=== PATIENT | male | born 1985 | race Caucasian/White ===

== ENCOUNTER 2022-02-10 20:57 | Emergency (ER) | payer OTHER ==
[~2022-02-10] VITALS: Ht 177.8 cm; Wt 79.4 kg
[2022-02-11 01:44] LABS: BASOPHILS % 0.2 % (0.0-2.0); EOSINOPHILS % 1.6 % (0.0-5.0); HEMOGLOBIN. 15.2 g/dL (14.0-18.0); LYMPHOCYTES % 29.9 % (20.0-50.0); MEAN CORPUSCULAR HEMOGLOBIN 31.7 pg (28.0-32.0); MEAN CORPUSCULAR VOLUME 93.6 fL (80.0-94.0); MEAN PLATELET VOLUME 7.8 fl (7.4-10.4); MONOCYTES % 8.6 % (2.0-8.0); NEUTROPHILS % 59.7 % (40.0-76.0); PLATELET 249 x1000/uL (130-400); RED CELL DISTRIBUTION WIDTH 13.4 % (11.6-14.6)
[2022-02-11 01:53] LABS: CHLORIDE 106 mEq/L (98-107)
[2022-02-11] MEDS ORDERED: IBUP-2028 MT (05:57)
[2022-02-11 06:00] VITALS: BP 125/77
== END 2022-02-11 06:45 | disposition home or self-care (01) ==
LOC: ER 20:57
DX: R07.89 Other chest pain (principal); F41.9 Anxiety disorder, unspecified; Z87.891 Personal history of nicotine dependence
CPT/HCPCS: 36415; 71045; 80053; 84484; 85025; 85379; 93005; 99285